=== PATIENT | male | born 1995 | race Caucasian/White ===

== ENCOUNTER 2017-07-19 23:33 | Observation (INO) | payer OTHER ==
[~2017-07-19] VITALS: Ht 177.8 cm; Wt 80.0 kg
[~2017-07-19 23:33] MED LIST: Z.0.NO CURRENT MEDS
[2017-07-19] MEDS ORDERED: SODIUM CHLOR 0.9% 1000 ML INJ 1,000 ML IV ONE (23:48)
--- NOTE | 2017-07-19 23:56 | PD ---
HPI Chief Complaint: overdose Time Seen by Provider: 23:48 Travel History International Travel<30 days: No Contact w/Intl Traveler<30days: No History of Present Illness HPI The patient is a 21 year old male who presents to the [facility] emergency department with a history of reportedly intentionally overdosing on 2 different medications. The first medication was 10 pills of along to his mother, and 5 pills of along to a friend. He is unsure of the names of the medications. He reports that he has attempted suicide in the past by overdose approximately 3 years ago. He denies being on any antidepressants of her psychiatric medications recently. The patient reports that he has been depressed recently. He reports that he was intentionally trying to harm himself. The patient was placed under a Christensen act prior to arrival. The patient's mother was able to be contacted and reports that the 2 medications that she takes are Synthroid and Strattera. The patient additionally reports that he has had 2 alcoholic beverages today. The patient has been taking the pills intermittently since 1 PM today. He last ingested the last pill approximately 2 hours prior to arrival. A friend called ambulance services to assist the patient. On review of systems, the patient denies having any known recent fevers, cough, congestion , neck pain, chest pain, shortness of breath, abdominal pain, vomiting, diarrhea , urinary symptoms, or neurologic symptoms. [facility] Past Medical History Narrative Medical The patient's past medical history is significant for attention deficit disorder , history of prior suicide attempt. Past Surgical History Narrative Surgical The patient's past surgical history is significant for breast surgery bilaterally related to gynecomastia. Social History Alcohol Use: Yes Tobacco Use: Yes Substance Use: No Allergies-Medications (Allergen,Severity, Reaction): Coded Allergies: No Known Allergies (Unverified Allergy, Unknown, 07/20/17) Reported Meds & Prescriptions Reported Meds & Active Scripts Active Reported No Current Meds (Miscellaneous Medication) Misc Review of Systems Except as stated in HPI: all other systems reviewed are Neg General / Constitutional: No: Fever Eyes: No: Visual changes HENT: No: Headaches Cardiovascular: No: Chest Pain or Discomfort Respiratory: No: Shortness of Breath Gastrointestinal: No: Abdominal Pain Genitourinary: No: Dysuria Musculoskeletal: No: Pain Skin: No Rash Neurologic: No: Weakness Psychiatric: Positive: Depression, Suicidal Ideations, Mood Disorder, No: Homicidal Ideation Endocrine: No: Polydipsia Hematologic/Lymphatic: No: Easy Bruising Physical Exam Narrative General: The patient is a well-developed well-nourished male in no acute distress. Head and Neck exam: Head is normocephalic atraumatic. Eyes: EOMI, pupils are equal round and reactive to light. Nose: Midline septum with pink mucous membranes Mouth: Dentition unremarkable. Moist mucus membranes. Posterior oropharynx is not erythematous. No tonsillar hypertrophy. Uvula midline. Airway patent. Neck: No palpable lymphadenopathy. No nuchal rigidity. No thyromegaly. Cardiovascular: Regular rate and rhythm without murmurs, gallops, or rubs. Lungs: Clear to auscultation bilaterally. No wheezes, rhonchi, or rales. Abdomen: Soft, without tenderness to palpation in all 4 quadrants of the abdomen. No guarding, rebound, or rigidity. Normal bowel sounds are audible. No tenderness on palpation of McBurney's point. Extremities: No clubbing, cyanosis, or edema. 2+ pulses in all 4 extremities. No calf tenderness on palpation. Neurologic Exam: Grossly nonfocal. Skin Exam: No rash noted. Intact skin that is warm and dry. Data Data Last Documented VS Vital Signs Date Time Temp Pulse Resp B/P (MAP) Pulse Ox O2 Delivery O2 Flow Rate FiO2 07/20/17 01:00 72 14 166/90 (115) 100 Room Air 07/20/17 00:00 98.9 Orders Orders Electrocardiogram (07/19/17 23:48) Complete Blood Count With Diff (07/19/17 23:48) Comprehensive Metabolic Panel (07/19/17 23:48) Prothrombin Time / Inr (Pt) (07/19/17 23:48) Act Partial Throm Time (Ptt) (07/19/17 23:48) Osmolality,Serum (07/19/17 23:48) Osmolality, Urine (07/19/17 23:48) Urinalysis - C+S If Indicated (07/19/17 23:48) Chest, Single Ap (07/19/17 23:48) Iv Access Insert/Monitor (07/19/17 23:48) Ecg Monitoring (07/19/17 23:48) Oximetry (07/19/17 23:48) Psych Screen (07/19/17 23:48) Sodium Chloride 0.9% Flush (Ns Flush) (07/20/17 00:00) Sodium Chlor 0.9% 1000 Ml Inj (Ns 1000 M (07/19/17 23:48) Call Poison Control (07/19/17 23:48) Drug Screen, Random Urine (07/19/17 23:48) Alcohol (Ethanol) (07/19/17 23:48) Salicylates (Aspirin) (07/19/17 23:48) Tylenol (Acetaminophen) (07/19/17 23:48) Admit Order (Ed Use Only) (07/20/17 02:28) Labs Laboratory Tests Test 07/19/17 23:55 White Blood Count 7.9 TH/MM3 Red Blood Count 5.31 MIL/MM3 Hemoglobin 16.6 GM/DL Hematocrit 48.1 % Mean Corpuscular Volume 90.6 FL Mean Corpuscular Hemoglobin 31.2 PG Mean Corpuscular Hemoglobin Concent 34.4 % Red Cell Distribution Width 13.1 % Platelet Count 157 TH/MM3 Mean Platelet Volume 10.4 FL Neutrophils (%) (Auto) 75.4 % Lymphocytes (%) (Auto) 18.1 % Monocytes (%) (Auto) 5.1 % Eosinophils (%) (Auto) 0.8 % Basophils (%) (Auto) 0.6 % Neutrophils # (Auto) 6.0 TH/MM3 Lymphocytes # (Auto) 1.4 TH/MM3 Monocytes # (Auto) 0.4 TH/MM3 Eosinophils # (Auto) 0.1 TH/MM3 Basophils # (Auto) 0.0 TH/MM3 CBC Comment DIFF FINAL Differential Comment Prothrombin Time 10.5 SEC Prothromb Time International Ratio 1.0 RATIO Activated Partial Thromboplast Time 26.4 SEC Blood Urea Nitrogen 15 MG/DL Creatinine 1.08 MG/DL Random Glucose 115 MG/DL Total Protein 7.8 GM/DL Albumin 4.4 GM/DL Calcium Level 8.9 MG/DL Alkaline Phosphatase 82 U/L Aspartate Amino Transf (AST/SGOT) 14 U/L Alanine Aminotransferase (ALT/SGPT) 24 U/L Total Bilirubin 0.3 MG/DL Sodium Level 141 MEQ/L Potassium Level 3.7 MEQ/L Chloride Level 104 MEQ/L Carbon Dioxide Level 28.5 MEQ/L Anion Gap 9 MEQ/L Estimat Glomerular Filtration Rate 86 ML/MIN Serum Osmolality 294 MOSM/KG Salicylates Level LESS THAN 1.7 MG/DL Acetaminophen Level LESS THAN 2.0 MCG/ML Ethyl Alcohol Level LESS THAN 3 MG/DL MDM Medical Decision Making Medical Screen Exam Complete: Yes Emergency Medical Condition: Yes Medical Record Reviewed: Yes Interpretation(s) Last Impressions Chest X-Ray 07/19/17 2348 Signed Impressions: Service Date/Time: Thursday, July 20, 2017 00:06 - CONCLUSION: No evidence of acute cardiopulmonary disease. Demetrio Lewis MD Differential Diagnosis Tricyclic acid antidepressant overdose, SSRI overdose, versus other substance overdose Narrative Course During the course of the patients emergency department visit, the patients history, examination, and differential diagnosis were reviewed with the patient. The patient was placed on a habilitative interventionist with oximetry and frequent blood pressure monitoring. The patient had IV access obtained and blood work sent for analysis. The patient had an ECG done on arrival. The patient's EKG reveals a sinus rhythm with a heart rate of 83, QRS duration is 114 ms with an incomplete right bundle branch block, QTC 429 ms. T waves are inverted in V1, V2. No acute ST segment elevation. Poison control contacted regarding this patient's case. The patient's electronic medical record was reviewed. The patient last had an ECG done at this facility on June 30, 2013. The patient' s QRS duration at that time with 100 ms. The patient will be continued on telemetry. Poison control was contacted regarding the patient's case. They recommended observation for 23 hours on telemetry with seizure precautions due to the unknown antidepressant ingestion. The patient was initially provided normal saline 1 L IV fluid bolus. The patients laboratory studies were reviewed and remarkable for a white count of 7.9, hemoglobin 16.6, platelets 157 with 75.4 neutrophils, CMP is remarkable for glucose of 1:15, AST 14, serum osmolality 294, PT PTT within normal limits, salicylate less than 1.7, acetaminophen less than 2, alcohol level less than 3. Radiology studies were reviewed and remarkable for a chest x-ray that shows no evidence of acute cardiopulmonary disease. The patient's ECG was repeated 3. The second ECG continued to show a QRS duration of 114 ms, the third ECG showed improvement of the QRS duration down to 110 ms. The patients results were discussed with the patient, including the plan of care. I explained that further testing and/ or monitoring is indicated based on the patients history, examination, and/ or laboratory findings. Therefore, I recommended admission for additional evaluation. The patient expressed understanding and was agreeable with this plan. The patient was admitted to the hospital in guarded condition and sent to a bed under the care of the [facility] service. Physician Communication Physician Communication The patient's case including history, pertinent physical examination findings, and laboratory studies were discussed with Dr. Thompson. It was agreed that the patient would be admitted to the [facility] service. Diagnosis Primary Impression: Suicide attempt by drug ingestion Qualified Codes: T50.902A - Poisoning by unspecified drugs, medicaments and biological substances, intentional self-harm, initial encounter Admitting Information Admitting Physician Requests: Observation Regine Sheffield MD Jul 19, 2017 23:56
[2017-07-20] VITALS (14 sets, daily range): BP systolic 122–166; BP diastolic 67–90; PULSE 53–84; RESP 14–20; TEMP 98–98.9; O2SAT 95–100
[2017-07-20] MEDS ORDERED: SODIUM CHLORIDE 0.9% FLUSH 10 ML FLUSH IVF PRN
[2017-07-20 00:08] LABS: BASOPHIL % 0.6 % (0.0-2.0); EOSINOPHIL # 0.1 TH/MM3 (0-0.4); EOSINOPHIL % 0.8 % (0.0-4.0); HEMATOCRIT 48.1 % (39.0-51.0); HEMO FLAGS DIFF FINAL; LYMPH % 18.1 % (9.0-44.0); LYMPHOCYTE # 1.4 TH/MM3 (1.0-4.8); MEAN CELL VOLUME 90.6 FL (80.0-100.0); MEAN CORPUSCULAR HEMOGLOBIN 31.2 PG (27.0-34.0); MEAN CORPUSCULAR HGB CONC 34.4 % (32.0-36.0); MONO % 5.1 % (0.0-8.0); NEUT % 75.4 % (16.0-70.0); PLATELET COUNT 157 TH/MM3 (150-450); RED BLOOD COUNT 5.31 MIL/MM3 (4.50-5.90); RED CELL DISTRIBUTION WIDTH 13.1 % (11.6-17.2); WHITE BLOOD COUNT 7.9 TH/MM3 (4.0-11.0)
[2017-07-20 00:20] LABS: APTT (PATIENT) 26.4 SEC (24.3-30.1); PROTHROMBIN TIME - PATIENT 10.5 SEC (9.8-11.6)
--- NOTE | 2017-07-20 00:22 | RADRPT ---
EXAM DATE/TIME: 07/20/2017 00:06 [facility] COMPARISON: No previous studies available for comparison. INDICATIONS : Cough MEDICAL HISTORY : None. SURGICAL HISTORY : None. ENCOUNTER: Initial ACUITY: 1 day PAIN SCORE: 7/10 LOCATION: Bilateral chest FINDINGS: A single view of the chest demonstrates the lungs to be symmetrically aerated without evidence of mas s, infiltrate or effusion. The cardiomediastinal contours are unremarkable. Osseous structures are intact. CONCLUSION: No evidence of acute cardiopulmonary disease. Demetrio Lewis MD on July 20, 2017 at 0:21 Board Certified Radiologist. This report was verified electronically.
[2017-07-20 00:34] LABS: ALT (GPT) 24 U/L (12-78); ANION GAP 9 MEQ/L (5-15); AST (GOT) 14 U/L (15-37); BICARBONATE 28.5 MEQ/L (21.0-32.0); BLOOD UREA NITROGEN 15 MG/DL (7-18); CHLORIDE 104 MEQ/L (98-107); GLOMERULAR FILTRATION RATE 86 ML/MIN (>89); POTASSIUM 3.7 MEQ/L (3.5-5.1); SODIUM (NA) 141 MEQ/L (136-145)
[2017-07-20 00:37] LABS: ALKALINE PHOSPHATASE 82 U/L (45-117); TOTAL BILIRUBIN ADULT 0.3 MG/DL (0.2-1.0)
[2017-07-20 00:41] LABS: ALCOHOL LESS THAN 3 MG/DL (0-5)
[2017-07-20 00:42] LABS: ACETAMINOPHEN LESS THAN 2.0 MCG/ML (10.0-30.0)
[2017-07-20] MEDS ORDERED: LACTULOSE SYRUP 20 GM/30 ML CUP PO PRN (02:30)
[2017-07-20] MEDS ORDERED: SODIUM CHLORIDE 0.9% FLUSH 10 ML FLUSH IV FLUSH PRN (02:30)
[2017-07-20] MEDS ORDERED: ACETAMINOPHEN 325 MG TAB PO PRN (02:30)
[2017-07-20] MEDS ORDERED: MAGNESIUM HYDROXIDE SUSP 30 ML CUP PO PRN (02:30)
[2017-07-20] MEDS ORDERED: SENNOSIDES 8.6 MG TAB PO PRN (02:30)
[2017-07-20] MEDS ORDERED: ONDANSETRON HCL 4 MG/2 ML VIAL IVP PRN (02:30)
[2017-07-20] MEDS ORDERED: BISACODYL 10 MG SUPP RECTAL PRN (02:30)
[2017-07-20] MEDS: SODIUM CHLOR 0.9% 1000 ML INJ 1,000 ML IV SCH ×3 (02:46→21:46)
--- NOTE | 2017-07-20 02:55 | HHI.HP ---
[facility] No Primary Care Physician Admission Diagnosis Intentional medication overdose, BA Diagnoses: (1) Suicide attempt by drug ingestion Diagnosis: Principal (2) Abnormal EKG Diagnosis: Principal (3) Dehydration Diagnosis: Principal Travel History International Travel<30 Days: No Contact w/Intl Traveler <30 Da: No Traveled to Known Affected Are: No History of Present Illness This is a 21-year-old male with PMH of ADD and previous h/o Suicide Attempt who was brought to the ER under Christensen Act for Intentional Overdose. Per report, pt had taken multiple tablets of both his mom's and his friend's pills-thought to be antidepressants and Strattera. Later reported he had been taking pills intermittently throughout the day-a pill or two at a time, since 1pm. Friend called EMS. On arrival, BP 166/90, HR 79, O2 sat 100% on RA, Afebrile. CBC unremarkable. Chemistry unremarkable except for GFR 86. INR 1.0. Alcohol negative. Tylenol/Salicylates negative. EKG with prolonged QRS of 114, incomplete RBBB and T-wave inversions. Poison Control contacted, recommended repeat EKG and admission for observation. Review of Systems Except as stated in HPI: all other systems reviewed are Neg ROS: 14 point review of systems otherwise negative. Past Family Social History Past Medical History PMH: ADD and previous h/o Suicide Attempt Past Surgical History PAST SURGICAL HISTORY: Breast Surgery for Gynecomastia Allergies: Coded Allergies: No Known Allergies (Unverified Allergy, Unknown, 07/20/17) Family History PAST FAMILY HISTORY: Reviewed. No h/o DM or CAD Social History PAST SOCIAL HISTORY: Occasional alcohol. Positive for tobacco. Negative for drugs. Physical Exam Vital Signs Vital Signs Date Time Temp Pulse Resp B/P (MAP) Pulse Ox O2 Delivery O2 Flow Rate FiO2 07/20/17 00:00 19 100 Room Air 07/20/17 00:00 98.9 79 19 166/90 (115) 100 Physical Exam PE: GENERAL: Young male in no acute distress, sleeping comfortably. HEENT: PERRLA, EOMI. No scleral icterus or conjunctival pallor. No lid lag or facial droop. CARDIOVASCULAR: Regular rate and rhythm. No obvious murmurs to auscultation. No chest tenderness to palpation. RESPIRATORY: No obvious rhonchi or wheezing. Clear to auscultation. Breath sounds equal bilaterally. GASTROINTESTINAL: Abdomen soft, non-tender, nondistended. BS normal. MUSCULOSKELETAL: Extremities without clubbing, cyanosis, or edema. No obvious deformities. NEUROLOGICAL: Awake, alert and oriented x4. No focal neurologic deficits. Moving both upper and lower extremities spontaneously. Laboratory Laboratory Tests Test 07/19/17 23:55 White Blood Count 7.9 Red Blood Count 5.31 Hemoglobin 16.6 Hematocrit 48.1 Mean Corpuscular Volume 90.6 Mean Corpuscular Hemoglobin 31.2 Mean Corpuscular Hemoglobin Concent 34.4 Red Cell Distribution Width 13.1 Platelet Count 157 Mean Platelet Volume 10.4 Neutrophils (%) (Auto) 75.4 Lymphocytes (%) (Auto) 18.1 Monocytes (%) (Auto) 5.1 Eosinophils (%) (Auto) 0.8 Basophils (%) (Auto) 0.6 Neutrophils # (Auto) 6.0 Lymphocytes # (Auto) 1.4 Monocytes # (Auto) 0.4 Eosinophils # (Auto) 0.1 Basophils # (Auto) 0.0 CBC Comment DIFF FINAL Differential Comment Prothrombin Time 10.5 Prothromb Time International Ratio 1.0 Activated Partial Thromboplast Time 26.4 Blood Urea Nitrogen 15 Creatinine 1.08 Random Glucose 115 Total Protein 7.8 Albumin 4.4 Calcium Level 8.9 Alkaline Phosphatase 82 Aspartate Amino Transf (AST/SGOT) 14 Alanine Aminotransferase (ALT/SGPT) 24 Total Bilirubin 0.3 Sodium Level 141 Potassium Level 3.7 Chloride Level 104 Carbon Dioxide Level 28.5 Anion Gap 9 Estimat Glomerular Filtration Rate 86 Serum Osmolality 294 Salicylates Level LESS THAN 1.7 Acetaminophen Level LESS THAN 2.0 Ethyl Alcohol Level LESS THAN 3 Result Diagram: 07/19/17235407/19/172354 Caprini VTE Risk Assessment Caprini VTE Risk Assessment: No/Low Risk (score <= 1) Caprini Risk Assessment Model Point Value = 1 Point Value = 2 Point Value = 3 Point Value = 5 Age 41-60 Minor surgery BMI > 25 kg/m2 Swollen legs Varicose veins or History of unexplained or recurrent spontaneous Oral contraceptives or hormone replacement Sepsis (< 1 month) Serious lung disease, including pneumonia (< 1 month) Abnormal pulmonary function Acute myocardial infarction Congestive heart failure (< 1 month) History of inflammatory bowel disease Medical patient at bed rest Age 61-74 Arthroscopic surgery Major open surgery (> 45 min) Laparoscopic surgery (> 45 min) Malignancy Confined to bed (> 72 hours) Immobilizing plaster cast Central venous access Age >= 75 History of VTE Family history of VTE Factor V Leiden Prothrombin [id number] Lupus anticoagulant Anticardiolipin antibodies Elevated serum homocysteine Heparin-induced thrombocytopenia Other congenital or acquired thrombophilia Stroke (< 1 month) Elective arthroplasty Hip, pelvis, or leg fracture Acute spinal cord injury (< 1 month) Prophylaxis Regimen Total Risk Factor Score Risk Level Prophylaxis Regimen 0-1 Low Early ambulation 2 Moderate Order ONE of the following: *Sequential Compression Device (SCD) *Heparin 5000 units SQ BID 3-4 Higher Order ONE of the following medications: *Heparin 5000 units SQ TID *Enoxaparin/Lovenox 40 mg SQ daily (WT < 150 kg, CrCl > 30 mL/min) *Enoxaparin/Lovenox 30 mg SQ daily (WT < 150 kg, CrCl > 10-29 mL/min) *Enoxaparin/Lovenox 30 mg SQ BID (WT < 150 kg, CrCl > 30 mL/min) AND/OR *Sequential Compression Device (SCD) 5 or more Highest Order ONE of the following medications: *Heparin 5000 units SQ TID (Preferred with Epidurals) *Enoxaparin/Lovenox 40 mg SQ daily (WT < 150 kg, CrCl > 30 mL/min) *Enoxaparin/Lovenox 30 mg SQ daily (WT < 150 kg, CrCl > 10-29 mL/min) *Enoxaparin/Lovenox 30 mg SQ BID (WT < 150 kg, CrCl > 30 mL/min) AND *Sequential Compression Device (SCD) Assessment and Plan Problem List: (1) Suicide attempt by drug ingestion ICD Code: T50.902A - Poisoning by unspecified drugs, medicaments and biological substances, intentional self-harm, initialencounter Status: Acute (2) Abnormal EKG ICD Code: R94.31 - Abnormal electrocardiogram [ECG] [EKG] (3) Dehydration ICD Code: E86.0 - Dehydration Assessment and Plan A/P: 1. Suicide Attempt: Intentional Overdose in Suicide Attempt. Reportedly ingested 15 tablets of antidepressants and Strattera throughout the day yesterday. Currently under Christensen Act. Poison Control recommending admission for Observation. Telemetry, Seizure Precautions. Consult Psych. Sitter. 2. Abnormal EKG: Prolonged QRS 114, Incomplete RBBB and T-wave inversions, repeat EKG w/ QRS 110. Will check serial EKG's q4h. Telemetry. 3. Dehydration: GFR 86. IVF for hydration, repeat labs in am. 4. DVT Prophylaxis: SCD/Teds. 5. Social work for d/c planning as needed. 6. Case discussed w/ ER physician at length. Problem Qualifiers (1) Suicide attempt by drug ingestion: Qualified Codes: T50.902A - Poisoning by unspecified drugs, medicaments and biological substances, intentional self-harm, initial encounter Sarah Thompson MD Jul 20, 2017 02:55
[2017-07-20] MEDS: DOCUSATE SODIUM 50 MG/SENNA 8.6 MG TAB PO SCH ×2 (09:01→21:00)
[2017-07-20] MEDS: SODIUM CHLORIDE 0.9% FLUSH 10 ML FLUSH IV FLUSH SCH ×2 (09:02→21:46)
--- NOTE | 2017-07-20 09:35 | PD.PSY.CON ---
Provisional Diagnosis Admission Date Jul 20, 2017 at 02:30 [place] I. Major depressive disorder, single episode, severe, without psychosis, cannabis use disorder [place] II. Deferred [place] III. No significant medical history [place] IV. Noncompliance with psychotropic [place] V. 35 History of Present Illness Service Psychiatry Consult Requested By ER team Reason for Consult Suicidal attempt Primary Care Physician No Primary Care Physician HPI The patient is a 21-year-old man, domiciled with his parents in [place], unemployed, single, with a self-reported psychiatric history of ADHD, 2 previous psychiatric hospitalizations, one suicide attempts, no established outpatient care, no medication at this moment, cannabis use disorder, he has one ER psychiatric visit to [place] in 2012, but documentation is not clear, no significant medical history, who was brought to the ER under Christensen Act for Intentional Overdose. Per report, pt had taken multiple tablets of both his mom 's and his friend's pills-thought to be antidepressants and Strattera. Later reported he had been taking pills intermittently throughout the day-a pill or two at a time, since 1pm. Friend called EMS. On arrival, BP 166/90, HR 79, O2 sat 100% on RA, Afebrile. CBC unremarkable. Chemistry unremarkable except for GFR 86. INR 1.0. Alcohol negative. Tylenol/Salicylates negative. EKG with prolonged QRS of 114, incomplete RBBB and T-wave inversions. Poison Control contacted, recommended repeat EKG and admission for observation. On psychiatric evaluation today patient is calm, superficially cooperative, he seems to be fragile and vulnerable. Patient is objectively depressed, he says that weeks he has been feeling worthless, has lost the purpose in life, feels frustrated, useless," my life is not going anywhere", pessimistic, with some interpersonal conflicts with family and friends, and has been having suicidal thoughts until yesterday when he took pills in order to . Today on evaluation patient still feels life is no worth living. He denies any plan at this moment. He contracted for safety in the ER. Patient cannot identify a precise acute stressor. He also reports insomnia, poor energy and concentration , and poor appetite. The patient denies the use of alcohol and illicit drugs, but reports using marijuana occasionally. Review of Systems Constitutional: DENIES: Diaphoretic episodes, Fatigue, Fever, Weight gain, Weight loss, Chills, Dizziness, Change in appetite, Night Sweats Endocrine: DENIES: Heat/cold intolerance, Polydipsia, Polyuria, Polyphagia Eyes: DENIES: Blurred vision, Diplopia, Eye inflammation, Eye pain, Vision loss , Photosensitivity, Double Vision Ears, nose, mouth, throat: DENIES: Tinnitus, Hearing loss, Vertigo, Nasal discharge, Oral lesions, Throat pain, Hoarseness, Ear Pain, Running Nose, Epistaxis, Sinus Pain, Toothache, Odynophagia Respiratory: DENIES: Apneas, Cough, Snoring, Wheezing, Hemoptysis, Sputum production, Shortness of breath Cardiovascular: DENIES: Chest pain, Palpitations, Syncope, Dyspnea on Exertion , PND, Lower Extremity Edema, Orthopnea, Claudication Genitourinary: DENIES: Sexual dysfunction, Urinary frequency, Urinary incontinence, Urgency, Hematuria, Dysuria, Nocturia, Penile Discharge, Testicular Pain, Testicular Swelling Integumentary: DENIES: Abnormal pigmentation, Nail changes, Pruritus, Rash Hematologic/lymphatic: DENIES: Bruising, Lymphadenopathy Immunologic/allergic: DENIES: Eczema, Urticaria Neurologic: DENIES: Abnormal gait, Headache, Localized weakness, Paresthesias, Seizures, Speech Problems, Tremor, Poor Balance Psychiatric: COMPLAINS OF: Depression, Suicidal Ideation Past Family Social History Coded Allergies: No Known Allergies (Unverified Allergy, Unknown, 07/20/17) Reported Medications Miscellaneous (No Current Meds) [facility] [place] 06/30/13 Current Medications Medications (Trade) Dose Ordered Sig/Johnson Route Start Time Stop Time Status Last Admin (NS Flush) 2 ml UNSCH PRN IVF 07/20/17 00:00 Sodium Chloride 1,000 ml @ 100 mls/hr Q10H IV 07/20/17 03:00 07/20/17 02:46 (NS Flush) 2 ml UNSCH PRN IV FLUSH 07/20/17 02:30 (NS Flush) 2 ml BID IV FLUSH 07/20/17 09:00 07/20/17 09:02 (Zofran Inj) 4 mg Q6H PRN IVP 07/20/17 02:30 (Tylenol) 650 mg Q6H PRN PO 07/20/17 02:30 (Sue-Colace) 1 tab BID PO 07/20/17 09:00 07/20/17 09:01 (Milk Of Magnesia Liq) 30 ml Q12H PRN PO 07/20/17 02:30 (Senokot) 17.2 mg Q12H PRN PO 07/20/17 02:30 (Dulcolax Supp) 10 mg DAILY PRN RECTAL 07/20/17 02:30 (Lactulose Liq) 30 ml DAILY PRN PO 07/20/17 02:30 Family Psych History his mother has depression and ADHD Social History Patient was born and raised in [place], he lives in [place] with his parents , his single, unemployed, highest level of education is high school. Patient's Strengths (min. 2) Family support Physical Exam No tremors, no EPS, no withdrawal, no psychomotor agitation or retardation, no gait disturbance Vital Signs Vital Signs Date Time Temp Pulse Resp B/P (MAP) Pulse Ox O2 Delivery O2 Flow Rate FiO2 07/20/17 07:56 59 07/20/17 07:26 98.1 16 127/77 (94) 97 07/20/17 03:00 Room Air I/O 07/20/17 07/20/17 07/21/17 08:00 16:00 00:00 Intake Total 1000 ml Balance 1000 ml Lab Results Test 07/19/17 23:55 White Blood Count 7.9 TH/MM3 Red Blood Count 5.31 MIL/MM3 Hemoglobin 16.6 GM/DL Hematocrit 48.1 % Mean Corpuscular Volume 90.6 FL Mean Corpuscular Hemoglobin 31.2 PG Mean Corpuscular Hemoglobin Concent 34.4 % Red Cell Distribution Width 13.1 % Platelet Count 157 TH/MM3 Mean Platelet Volume 10.4 FL Neutrophils (%) (Auto) 75.4 % Lymphocytes (%) (Auto) 18.1 % Monocytes (%) (Auto) 5.1 % Eosinophils (%) (Auto) 0.8 % Basophils (%) (Auto) 0.6 % Neutrophils # (Auto) 6.0 TH/MM3 Lymphocytes # (Auto) 1.4 TH/MM3 Monocytes # (Auto) 0.4 TH/MM3 Eosinophils # (Auto) 0.1 TH/MM3 Basophils # (Auto) 0.0 TH/MM3 CBC Comment DIFF FINAL Differential Comment Prothrombin Time 10.5 SEC Prothromb Time International Ratio 1.0 RATIO Activated Partial Thromboplast Time 26.4 SEC Blood Urea Nitrogen 15 MG/DL Creatinine 1.08 MG/DL Random Glucose 115 MG/DL Total Protein 7.8 GM/DL Albumin 4.4 GM/DL Calcium Level 8.9 MG/DL Alkaline Phosphatase 82 U/L Aspartate Amino Transf (AST/SGOT) 14 U/L Alanine Aminotransferase (ALT/SGPT) 24 U/L Total Bilirubin 0.3 MG/DL Sodium Level 141 MEQ/L Potassium Level 3.7 MEQ/L Chloride Level 104 MEQ/L Carbon Dioxide Level 28.5 MEQ/L Anion Gap 9 MEQ/L Estimat Glomerular Filtration Rate 86 ML/MIN Serum Osmolality 294 MOSM/KG Salicylates Level LESS THAN 1.7 MG/DL Acetaminophen Level LESS THAN 2.0 MCG/ML Ethyl Alcohol Level LESS THAN 3 MG/DL Mental Status Examination Appearance: Appropriate Consciousness: Alert Orientation: x4 Motor Activity: Normal gait Speech: Unremarkable Language: Adequate Fund of Knowledge: Adequate Attention and Concentration: Adequate Memory: Unremarkable Mood: Sad, Irritable Affect: Sad, Blunt Thought Process & Associations: Intact Thought Content: Appropriate Hallucination Type: None Delusion Type: None Suicidal Ideation: No Suicidal Plan: No Suicidal Intention: No Homicidal Ideation: No Homicidal Plan: No Homicidal Intention: No Insight: Adequate Judgment: Adequate Assessment & Plan Problem List: (1) Major depressive disorder, single episode ICD Codes: F32.9 - Major depressive disorder, single episode, unspecified Assessment & Plan: On psychiatric evaluation the patient reports several weeks of ongoing symptomatology of depression mostly consistent on sense of frustration, lack of motivation, generalized pessimism, poor sleep, poor appetite, insomnia, loss of pressure in usually pleasurable activities, suicidal thoughts the finally led to a suicide attempt by overdosing with his mother's psychotropics yesterday. Patient cannot identify precise acute stressors. He does have what seems to be protective factors, such as family support, history of successful outpatient treatment. But, at this moment the patient represents an acute danger to himself and needs psychiatric admission for stabilization and safety. Patient will be transferred to psychiatry once medically stable. He could be appropriate for med psych unit. We'll start Wellbutrin 75 mg twice a day for depression. Continue with the sitter in ER floor. Extensive support, motivation and psychoeducation provided. Consult appreciated. Assessment & Plan Estimated LOS: Humberto Sorenson MD Jul 20, 2017 09:35
--- NOTE | 2017-07-20 10:52 | HHI.PR ---
Subjective Remarks Follow up on patient with depression, suicide attempt via OD. Patient seen and examined. Patient reports some lightheadedness. He denies any vision changes or headache. He denies any chest pain, palpitations or dyspnea. He reports some nausea but no vomiting or abdominal pain. He is urinating without any difficulties. Objective Vitals Vital Signs Date Time Temp Pulse Resp B/P (MAP) Pulse Ox O2 Delivery O2 Flow Rate FiO2 07/20/17 07:56 59 07/20/17 07:26 98.1 72 16 127/77 (94) 97 07/20/17 06:20 68 07/20/17 05:40 98.2 71 17 122/67 (85) 98 07/20/17 05:22 07/20/17 03:00 84 16 156/78 (104) 100 Room Air 07/20/17 01:00 72 14 166/90 (115) 100 Room Air 07/20/17 00:00 19 100 Room Air 07/20/17 00:00 98.9 79 19 166/90 (115) 100 I/O 07/19/17 07/19/17 07/19/17 07/20/17 07/20/17 07/20/17 07:00 15:00 23:00 07:00 15:00 23:00 Intake Total 1000 ml Balance 1000 ml Intake IV Total 1000 ml Result Diagram: 07/19/17 2355 07/19/17 235 Imaging Last Impressions Chest X-Ray 07/19/172347 Signed Impressions: Service Date/Time: Thursday, July 20, 2017 00:06 - CONCLUSION: No evidence of acute cardiopulmonary disease. Demetrio Lewis MD Objective Remarks GENERAL: Well-nourished, well-developed young male patient in NAD. Awake and alert. Sitter at the bedside. SKIN: Warm and dry. HEAD: Normocephalic. Atraumatic. EYES: Dilated pupils. No scleral icterus. No injection or drainage. ENT: No nasal bleeding or discharge. Mucous membranes pink and moist. NECK: Trachea midline. CARDIOVASCULAR: Regular rate and rhythm. S1, S2 noted. No murmur appreciated. RESPIRATORY: Nonlabored. Clear to auscultation. Breath sounds equal bilaterally. GASTROINTESTINAL: Abdomen soft, non-tender, nondistended. Normoactive bowel sounds x4. MUSCULOSKELETAL: No obvious deformities. Extremities without clubbing, cyanosis , or edema. NEUROLOGICAL: Awake and alert. Able to move all extremities. Nonfocal. Normal speech. Medications and IVs Current Medications Medications (Trade) Dose Ordered Sig/Johnson Route Start Time Stop Time Status Last Admin (NS Flush) 2 ml UNSCH PRN IVF 07/20/17 00:00 Sodium Chloride 1,000 ml @ 100 mls/hr Q10H IV 07/20/17 03:00 07/20/17 02:46 (NS Flush) 2 ml UNSCH PRN IV FLUSH 07/20/17 02:30 (NS Flush) 2 ml BID IV FLUSH 07/20/17 09:00 07/20/17 09:02 (Zofran Inj) 4 mg Q6H PRN IVP 07/20/17 02:30 (Tylenol) 650 mg Q6H PRN PO 07/20/17 02:30 (Sue-Colace) 1 tab BID PO 07/20/17 09:00 07/20/17 09:01 (Milk Of Magnesia Liq) 30 ml Q12H PRN PO 07/20/17 02:30 (Senokot) 17.2 mg Q12H PRN PO 07/20/17 02:30 (Dulcolax Supp) 10 mg DAILY PRN RECTAL 07/20/17 02:30 (Lactulose Liq) 30 ml DAILY PRN PO 07/20/17 02:30 A/P Problem List: (1) Suicide attempt by drug ingestion ICD Code: T50.902A - Poisoning by unspecified drugs, medicaments and biological substances, intentional self-harm, initialencounter Status: Acute (2) Abnormal EKG ICD Code: R94.31 - Abnormal electrocardiogram [ECG] [EKG] (3) Dehydration ICD Code: E86.0 - Dehydration Assessment and Plan 21 yo male past medical history of ADD, depression with previous suicide attempt admitted after repeat suicide attempt via OD on antidepressants and Strattera. Depression Suicide attempt via intentional OD - under Christensen act - Psych consulted, appreciate assistance. Patient to be transferred to psychiatry once medically stable/appropriate for MedPsych unit. Patient started on the future and 75 mg twice a day for depression. - Continue sitter - UDS ordered Intentional OD antidepressants and Strattera - poison control contacted and recommended serial EKGs - last EKG with prolonged QTc and T wave inversions. Patient denies any cardiac complaints. Continue to monitor. Repeat EKG in 3 hours. - Consult cardiology to evaluate for conduction abnormality, appreciate assistance - continuous cardiac monitoring - obtain serial cardiac enzymes - seizure precautions Dehydration - GFR 86 - Receiving IV fluid hydration - repeat labs in am to monitor response DVT prophylaxis - Bilateral SCD/CARLA hose Discussed with nursing staff, patient and Dr. Auguste Discharge Planning Plan to transfer to [facility]/psych once medically stable, likely later today Problem Qualifiers (1) Suicide attempt by drug ingestion: Qualified Codes: T50.902A - Poisoning by unspecified drugs, medicaments and biological substances, intentional self-harm, initial encounter Daiana Chery Jul 20, 2017 10:52
[2017-07-20 11:53] LABS: CREATINE KINASE 111 U/L (39-308)
[2017-07-20 12:05] LABS: CKMB 0.9 NG/ML (0.5-3.6)
[2017-07-20 15:42] LABS: BLOOD, URINE NEG (NEG); COMMENT (UR) CULT NOT INDICATED; CULTURE IF INDICATED CULT NOT INDICATED; GLUCOSE,URINE NEG (NEG); KETONE, URINE NEG (NEG); NITRITE,URINE NEG (NEG); PH, URINE 7.5 (5.0-8.5); URINE COLOR YELLOW (YELLW/STRAW)
--- NOTE | 2017-07-20 15:53 | PD.CONS ---
HPI Consult Requested By Primary Care Physician No Primary Care Physician History of Present Illness 21-year-old male with PMH of ADD and previous h/o Suicide Attempt who was brought to the ER under Christensen Act for Intentional Overdose. Consulted to cardiology because of conduction abnormalities in the EKG. EKG shows sinus bradycardia and incomplete right bundle branch blocks. No CV complaints. Review of Systems Consitutional: DENIES: Fatigue, Fever, Chills, Weight gain, Weight loss Eyes: DENIES: Amaurosis F[place], Change in vision HEENT: DENIES: Lightheadedness, Change in hearing Respiratory: DENIES: See HPI, Cough, Snoring, Shortness of breath, Wheezing, Sputum production Cardiovascular: DENIES: See HPI, Chest pain, Palpitations, Syncope, Tachycardia Gastrointestinal: DENIES: Nausea, Vomiting, Change in bowel habits, Reflux, Bloody stools, Melena Genitourinary: DENIES: Urinary incontinence, Difficulty voiding Integumentary: DENIES: Rash Neurologic: DENIES: Tingling or numbness, Memory problems, Poor Balance, Stroke symptoms Musculoskeletal: DENIES: Joint pain, Muscle pain, Limited range of motion, Back pain Psychiatric: DENIES: Anxiety, Depression, Sleep disturbances Hematologic: DENIES: Bruising tendencies, Bleeding tendencies Endocrine: DENIES: Weight gain, Weight loss, Thyroid disease Past Family Social History Allergies: Coded Allergies: No Known Allergies (Unverified Allergy, Unknown, 07/20/17) Past Medical History ADD and previous h/o Suicide Attempt Past Surgical History Breast Surgery for Gynecomastia Reported Medications Reported Meds & Active Scripts Active Reported No Current Meds (Miscellaneous Medication) Misc Active Ordered Medications Current Medications Medications (Trade) Dose Ordered Sig/Johnson Route Start Time Stop Time Status Last Admin (NS Flush) 2 ml UNSCH PRN IVF 07/20/17 00:00 Sodium Chloride 1,000 ml @ 100 mls/hr Q10H IV 07/20/17 03:00 07/20/17 02:46 (NS Flush) 2 ml UNSCH PRN IV FLUSH 07/20/17 02:30 (NS Flush) 2 ml BID IV FLUSH 07/20/17 09:00 07/20/17 09:02 (Zofran Inj) 4 mg Q6H PRN IVP 07/20/17 02:30 (Tylenol) 650 mg Q6H PRN PO 07/20/17 02:30 (Sue-Colace) 1 tab BID PO 07/20/17 09:00 07/20/17 09:01 (Milk Of Magnesia Liq) 30 ml Q12H PRN PO 07/20/17 02:30 (Senokot) 17.2 mg Q12H PRN PO 07/20/17 02:30 (Dulcolax Supp) 10 mg DAILY PRN RECTAL 07/20/17 02:30 (Lactulose Liq) 30 ml DAILY PRN PO 07/20/17 02:30 Family History Reviewed. No h/o DM or CAD Social History Occasional alcohol. Positive for tobacco. Negative for drugs. Physical Exam Vital Signs Vital Signs Date Time Temp Pulse Resp B/P (MAP) Pulse Ox O2 Delivery O2 Flow Rate FiO2 07/20/17 13:07 98.2 66 16 130/79 (96) 96 07/20/17 07:56 59 07/20/17 07:26 98.1 72 16 127/77 (94) 97 07/20/17 06:20 68 07/20/17 05:40 98.2 71 17 122/67 (85) 98 07/20/17 05:22 07/20/17 03:00 84 16 156/78 (104) 100 Room Air 07/20/17 01:00 72 14 166/90 (115) 100 Room Air 07/20/17 00:00 19 100 Room Air 07/20/17 00:00 98.9 79 19 166/90 (115) 100 Physical Exam GENERAL: Well-nourished, well-developed patient. SKIN: Warm and dry. HEAD: Normocephalic. EYES: No scleral icterus. No injection or drainage. NECK: Supple, trachea midline. No JVD or lymphadenopathy. CARDIOVASCULAR: Regular rate and rhythm without murmurs, gallops, or rubs. RESPIRATORY: Breath sounds equal bilaterally. No accessory muscle use. GASTROINTESTINAL: Abdomen soft, non-tender, nondistended. EXTREMITIES: No cyanosis, or edema. NEUROLOGICAL: Awake, alert, and oriented x 3. Non-focal. Laboratory Laboratory Tests Test 07/19/17 23:55 07/20/17 10:45 07/20/17 14:30 White Blood Count 7.9 Red Blood Count 5.31 Hemoglobin 16.6 Hematocrit 48.1 Mean Corpuscular Volume 90.6 Mean Corpuscular Hemoglobin 31.2 Mean Corpuscular Hemoglobin Concent 34.4 Red Cell Distribution Width 13.1 Platelet Count 157 Mean Platelet Volume 10.4 Neutrophils (%) (Auto) 75.4 Lymphocytes (%) (Auto) 18.1 Monocytes (%) (Auto) 5.1 Eosinophils (%) (Auto) 0.8 Basophils (%) (Auto) 0.6 Neutrophils # (Auto) 6.0 Lymphocytes # (Auto) 1.4 Monocytes # (Auto) 0.4 Eosinophils # (Auto) 0.1 Basophils # (Auto) 0.0 CBC Comment DIFF FINAL Differential Comment Prothrombin Time 10.5 Prothromb Time International Ratio 1.0 Activated Partial Thromboplast Time 26.4 Blood Urea Nitrogen 15 Creatinine 1.08 Random Glucose 115 Total Protein 7.8 Albumin 4.4 Calcium Level 8.9 Alkaline Phosphatase 82 Aspartate Amino Transf (AST/SGOT) 14 Alanine Aminotransferase (ALT/SGPT) 24 Total Bilirubin 0.3 Sodium Level 141 Potassium Level 3.7 Chloride Level 104 Carbon Dioxide Level 28.5 Anion Gap 9 Estimat Glomerular Filtration Rate 86 Serum Osmolality 294 Salicylates Level LESS THAN 1.7 Acetaminophen Level LESS THAN 2.0 Ethyl Alcohol Level LESS THAN 3 Total Creatine Kinase 111 Creatine Kinase MB 0.9 Troponin I LESS THAN 0.02 Thyroid Stimulating Hormone 3rd Gen 0.518 Urine Color YELLOW Urine Turbidity HAZY Urine pH 7.5 Urine Specific [place] 1.013 Urine Protein NEG Urine Glucose (UA) NEG Urine Ketones NEG Urine Occult Blood NEG Urine Nitrite NEG Urine Bilirubin NEG Urine Urobilinogen LESS THAN 2.0 Urine Leukocyte Esterase NEG Urine Amorphous Sediment RARE Microscopic Urinalysis Comment CULT NOT INDICATED Urine Opiates Screen NEG Urine Barbiturates Screen NEG Urine Amphetamines Screen NEG Urine Benzodiazepines Screen NEG Urine Cocaine Screen NEG Urine Cannabinoids Screen NEG Result Diagram: 07/19/17 2355 07/19/17 235 Imaging Last Impressions Chest X-Ray 07/19/172347 Signed Impressions: Service Date/Time: Thursday, July 20, 2017 00:06 - CONCLUSION: No evidence of acute cardiopulmonary disease. Demetrio Lewis MD Assessment and Plan Problem List: (1) Abnormal EKG ICD Codes: R94.31 - Abnormal electrocardiogram [ECG] [EKG] Plan: Unremarkable EKG for age. No conduction abnormalities. Thank you for the opportunity to take part in the care of this patient Sign off (2) Suicide attempt by drug ingestion ICD Codes: T50.902A - Poisoning by unspecified drugs, medicaments and biological substances, intentional self-harm, initialencounter Status: Acute (3) Dehydration ICD Codes: E86.0 - Dehydration (4) Major depressive disorder, single episode ICD Codes: F32.9 - Major depressive disorder, single episode, unspecified Problem Qualifiers (1) Suicide attempt by drug ingestion: Qualified Codes: T50.902A - Poisoning by unspecified drugs, medicaments and biological substances, intentional self-harm, initial encounter Jb Cotto MD Jul 20, 2017 15:53
--- NOTE | 2017-07-20 16:16 | EKG ---
Date Performed: 07/20/2017 Time Performed: 02:24:19 PTAGE: 21 years EKG: Sinus rhythm ST ELEVATION, PROBABLY EARLY REPOLARIZATION Compared to prior tracing no significant change BORDERLI NE ECG PREVIOUS TRACING : 07/20/17 @ 0131 DOCTOR: Farhan Venegas Interpretating Date/Time 07/20/2017 16:14:29
--- NOTE | 2017-07-20 16:16 | EKG ---
Date Performed: 07/20/2017 Time Performed: 01:31:48 PTAGE: 21 years EKG: Sinus rhythm MODERATE INTRAVENTRICULAR CONDUCTION DELAY ST ELEVATION, PROBABLY EARLY REPOLARIZATION Compared to p rior tracing no significant change BORDERLINE ECG PREVIOUS TRACING : 07/19/17 @ 2346 DOCTOR: Farhan Venegas Interpretating Date/Time 07/20/2017 16:14:00
--- NOTE | 2017-07-20 16:16 | EKG ---
Date Performed: 07/19/2017 Time Performed: 23:46:16 PTAGE: 21 years EKG: Sinus rhythm INCOMPLETE RIGHT BUNDLE BRANCH BLOCK Compared to prior tracing no significant change BORDERLINE ECG PREVIOUS TRACING : 06/30/2013 11.48 DOCTOR: Farhan Venegas Interpretating Date/Time 07/20/2017 16:13:38
--- NOTE | 2017-07-20 16:17 | EKG ---
Date Performed: 07/20/2017 Time Performed: 06:05:33 PTAGE: 21 years EKG: Sinus rhythm WITH SINUS ARRHYTHMIA MODERATE INTRAVENTRICULAR CONDUCTION DELAY Compared to prior tracing no signif icant change BORDERLINE ECG PREVIOUS TRACING : 07/20/17 @ 0224 DOCTOR: Farhan Venegas Interpretating Date/Time 07/20/2017 16:15:02
[2017-07-20 18:33] LABS: CREATINE KINASE 103 U/L (39-308)
[2017-07-20 18:45] LABS: CKMB 0.6 NG/ML (0.5-3.6)
[2017-07-21] VITALS: PULSE 60
[2017-07-21 02:19] LABS: AUTOMATED NEUTROPHIL # 5.8 TH/MM3 (1.8-7.7); BASOPHIL # 0.1 TH/MM3 (0-0.2); BASOPHIL % 0.5 % (0.0-2.0); EOSINOPHIL # 0.2 TH/MM3 (0-0.4); HEMATOCRIT 45.1 % (39.0-51.0); HEMO FLAGS DIFF FINAL; LYMPH % 28.2 % (9.0-44.0); LYMPHOCYTE # 2.6 TH/MM3 (1.0-4.8); MEAN CELL VOLUME 91.4 FL (80.0-100.0); MEAN CORPUSCULAR HEMOGLOBIN 30.5 PG (27.0-34.0); MEAN CORPUSCULAR HGB CONC 33.4 % (32.0-36.0); NEUT % 62.3 % (16.0-70.0); PLATELET COUNT 151 TH/MM3 (150-450); RED BLOOD COUNT 4.94 MIL/MM3 (4.50-5.90); RED CELL DISTRIBUTION WIDTH 13.3 % (11.6-17.2); WHITE BLOOD COUNT 9.3 TH/MM3 (4.0-11.0)
[2017-07-21 02:40] LABS: ALT (GPT) 19 U/L (12-78); ANION GAP 8 MEQ/L (5-15); AST (GOT) 11 U/L (15-37); BICARBONATE 29.5 MEQ/L (21.0-32.0); BLOOD UREA NITROGEN 16 MG/DL (7-18); CHLORIDE 104 MEQ/L (98-107); GLOMERULAR FILTRATION RATE 80 ML/MIN (>89); POTASSIUM 4.2 MEQ/L (3.5-5.1); SODIUM (NA) 141 MEQ/L (136-145)
[2017-07-21 02:44] LABS: ALKALINE PHOSPHATASE 68 U/L (45-117); TOTAL BILIRUBIN ADULT 0.5 MG/DL (0.2-1.0)
[2017-07-21 02:45] LABS: CREATINE KINASE 83 U/L (39-308)
[2017-07-21 03:28] VITALS: BP 134/73; PULSE 54; RESP 17; TEMP 97.9; O2SAT 96
[2017-07-21 03:50] VITALS: PULSE 53
[2017-07-21 07:41] VITALS: BP 139/79; PULSE 53; RESP 20; TEMP 98; O2SAT 97
[2017-07-21] MEDS: SODIUM CHLORIDE 0.9% FLUSH 10 ML FLUSH IV FLUSH SCH (08:04)
[2017-07-21] MEDS: SODIUM CHLOR 0.9% 1000 ML INJ 1,000 ML IV SCH (08:04)
[2017-07-21] MEDS: DOCUSATE SODIUM 50 MG/SENNA 8.6 MG TAB PO SCH (08:04)
[2017-07-21] MEDS ORDERED: BUPR150CR PO (09:48)
--- NOTE | 2017-07-21 09:49 | HHI.DCPOC ---
Discharge Care Plan Diagnosis: (1) Major depressive disorder, single episode (2) Suicide attempt by drug ingestion (3) Dehydration Goals to Promote Your Health * To prevent worsening of your condition and complications * To maintain your health at the optimal level Directions to Meet Your Goals Take your medications as prescribed Follow your dietary instruction Follow activity as directed Keep your appointments as scheduled Take your immunizations and boosters as scheduled If your symptoms worsen call your PCP, if no PCP go to Urgent Care Center or Emergency Room Smoking is Dangerous to Your Health. Avoid second hand smoke Call the 24-hour hour crisis hotline for domestic abuse at Sera Gil PA-C Jul 21, 2017 9:49 am
[2017-07-21 11:31] VITALS: BP 127/68; PULSE 64; RESP 20; TEMP 98.3; O2SAT 97
--- NOTE | 2017-07-21 11:46 | HHI.PYPN ---
Subjective Remarks The patient was seen today for psychiatric reevaluation, chart was reviewed, case discussed with Mrs. Gil and nurse in charge. On psychiatric evaluation patient continues to be depressed, poor motivation, patient reports having persistent suicidal thoughts, no immediate plan. He was able to contract for safety in the hospital. He says that he is looking forward to start medication and some kind of psychotherapy to help him his depression. Patient is oriented 3, he doesn't have any attention deficit, no fluctuation of consciousness, he denies visual and auditory hallucinations. Review of Systems Psychiatric: COMPLAINS OF: Depression, Suicidal Ideation Except as stated in HPI: all other systems reviewed are Neg Mental Status Examination Appearance: Appropriate Consciousness: Alert Orientation: x4 Motor Activity: Normal gait Speech: Unremarkable Language: Adequate Fund of Knowledge: Adequate Attention and Concentration: Adequate Memory: Unremarkable Mood: Sad, Irritable Affect: Sad, Blunt Thought Process & Associations: Intact Thought Content: Appropriate Hallucination Type: None Delusion Type: None Suicidal Ideation: No Suicidal Plan: No Suicidal Intention: No Homicidal Ideation: No Homicidal Plan: No Homicidal Intention: No Insight: Adequate Judgment: Adequate Results Labs Test 07/20/17 14:30 07/20/17 17:13 07/21/17 02:03 Urine Color YELLOW Urine Turbidity HAZY Urine pH 7.5 Urine Specific [place] 1.013 Urine Protein NEG mg/dL Urine Glucose (UA) NEG mg/dL Urine Ketones NEG mg/dL Urine Occult Blood NEG Urine Nitrite NEG Urine Bilirubin NEG Urine Urobilinogen LESS THAN 2.0 MG/DL Urine Leukocyte Esterase NEG Urine Amorphous Sediment RARE Microscopic Urinalysis Comment CULT NOT INDICATED Urine Osmolality 520 MOSM/KG Urine Opiates Screen NEG Urine Barbiturates Screen NEG Urine Amphetamines Screen NEG Urine Benzodiazepines Screen NEG Urine Cocaine Screen NEG Urine Cannabinoids Screen NEG Total Creatine Kinase 103 U/L 83 U/L Creatine Kinase MB 0.6 NG/ML Troponin I LESS THAN 0.02 NG/ML LESS THAN 0.02 NG/ML White Blood Count 9.3 TH/MM3 Red Blood Count 4.94 MIL/MM3 Hemoglobin 15.1 GM/DL Hematocrit 45.1 % Mean Corpuscular Volume 91.4 FL Mean Corpuscular Hemoglobin 30.5 PG Mean Corpuscular Hemoglobin Concent 33.4 % Red Cell Distribution Width 13.3 % Platelet Count 151 TH/MM3 Mean Platelet Volume 10.5 FL Neutrophils (%) (Auto) 62.3 % Lymphocytes (%) (Auto) 28.2 % Monocytes (%) (Auto) 7.0 % Eosinophils (%) (Auto) 2.0 % Basophils (%) (Auto) 0.5 % Neutrophils # (Auto) 5.8 TH/MM3 Lymphocytes # (Auto) 2.6 TH/MM3 Monocytes # (Auto) 0.6 TH/MM3 Eosinophils # (Auto) 0.2 TH/MM3 Basophils # (Auto) 0.1 TH/MM3 CBC Comment DIFF FINAL Differential Comment Blood Urea Nitrogen 16 MG/DL Creatinine 1.15 MG/DL Random Glucose 88 MG/DL Total Protein 6.9 GM/DL Albumin 3.9 GM/DL Calcium Level 8.8 MG/DL Alkaline Phosphatase 68 U/L Aspartate Amino Transf (AST/SGOT) 11 U/L Alanine Aminotransferase (ALT/SGPT) 19 U/L Total Bilirubin 0.5 MG/DL Sodium Level 141 MEQ/L Potassium Level 4.2 MEQ/L Chloride Level 104 MEQ/L Carbon Dioxide Level 29.5 MEQ/L Anion Gap 8 MEQ/L Estimat Glomerular Filtration Rate 80 ML/MIN Vitals/IOs Vital Signs Date Time Temp Pulse Resp B/P (MAP) Pulse Ox O2 Delivery O2 Flow Rate FiO2 07/21/17 11:31 98.3 64 20 127/68 (87) 97 07/20/17 03:00 Room Air Intake and Output 07/21/17 07/21/17 07/22/17 08:00 16:00 00:00 Intake Total 240 ml 1000 ml Balance 240 ml 1000 ml Assessment & Plan Problem List: (1) Major depressive disorder, single episode ICD Codes: F32.9 - Major depressive disorder, single episode, unspecified Assessment & Plan: Patient continues to be depressed. Suicidal ideation, nonspecific plan. We'll start Wellbutrin 75 mg twice a day for depression. Brief Supportive psychotherapy provided. Transfer to psychiatry. Assessment & Plan Estimated LOS: days Justification for Cont. Inpt. Patient needs psychiatric hospitalization for stabilization and safety. Humberto Escoto MD Jul 21, 2017 11:46
[2017-07-21] MEDS ORDERED: buPROPion HCL 75 MG TAB PO SCH (12:30)
--- NOTE | 2017-07-21 14:28 | HHI.PR ---
Subjective Remarks no acute complain Cleared by cardiology for transfer to [facility] Objective Vitals Vital Signs Date Time Temp Pulse Resp B/P (MAP) Pulse Ox O2 Delivery O2 Flow Rate FiO2 07/21/17 11:31 98.3 64 20 127/68 (87) 97 07/21/17 07:41 98.0 53 20 139/79 (99) 97 07/21/17 03:50 53 07/21/17 03:28 97.9 54 17 134/73 (93) 96 07/21/17 00:00 60 07/20/17 23:52 98.0 74 17 125/89 (101) 95 07/20/17 21:05 98.2 56 17 128/75 (92) 96 07/20/17 20:05 60 07/20/17 18:51 98.1 77 20 135/72 (93) 96 07/20/17 16:00 53 I/O 07/20/17 07/20/17 07/20/17 07/21/17 07/21/17 07/21/17 07:00 15:00 23:00 07:00 15:00 23:00 Intake Total 1000 ml 240 ml 1000 ml Balance 1000 ml 240 ml 1000 ml Intake Oral 240 ml IV Total 1000 ml 1000 ml # Voids 2 Result Diagram: 07/21/17 02007/21/17 020 Objective Remarks GENERAL: This is a well-nourished, well-developed patient, in no apparent distress. SKIN: No rashes, warm and dry HEAD: Atraumatic. Normocephalic. EYES: Pupils equal round and reactive. Extraocular motions intact. No scleral icterus. ENT: Nose without bleeding, or drainage, Airway patent. NECK: Trachea midline. Supple CARDIOVASCULAR: Regular rate and rhythm without murmurs, gallops, or rubs. RESPIRATORY: Fair air entry bilaterally. No wheezes, rales, or rhonchi. GASTROINTESTINAL: Abdomen soft, non-tender, nondistended. Positive bowel sounds MUSCULOSKELETAL: Extremities without clubbing, cyanosis, or edema. Pedal pulses appreciated NEUROLOGICAL: Awake and alert. Moves all extremity. Normal speech.no focal neurological deficit A/P Problem List: (1) Suicide attempt by drug ingestion ICD Code: T50.902A - Poisoning by unspecified drugs, medicaments and biological substances, intentional self-harm, initialencounter Status: Acute (2) Abnormal EKG ICD Code: R94.31 - Abnormal electrocardiogram [ECG] [EKG] (3) Dehydration ICD Code: E86.0 - Dehydration Assessment and Plan 21 yo male past medical history of ADD, depression with previous suicide attempt admitted after repeat suicide attempt via OD on antidepressants and Strattera. Depression Suicide attempt via intentional OD - under Christensen act - Psych consulted, appreciate assistance. Patient to be transferred to psychiatry once medically stable/appropriate for MedPsych unit. Patient started on the future and 75 mg twice a day for depression. - Continue sitter - UDS ordered Intentional OD antidepressants and Strattera - poison control contacted and recommended serial EKGs - last EKG with prolonged QTc and T wave inversions. Patient denies any cardiac complaints. Continue to monitor. Repeat EKG in 3 hours. - Consult cardiology to evaluate for conduction abnormality, appreciate assistance cleared cardiac clinton - continuous cardiac monitoring - obtain serial cardiac enzymes - seizure precautions Dehydration - GFR 86 - Receiving IV fluid hydration - repeat labs in am to monitor response DVT prophylaxis - Bilateral SCD/CARLA hose Medically cleared to go to [facility] Discharge Planning Discharge patient to home Condition on discharge: Improved Regular Diet as tolerated Ad Maryan activity Rx written: See med rec Follow-up with primary care physician Problem Qualifiers (1) Suicide attempt by drug ingestion: Qualified Codes: T50.902A - Poisoning by unspecified drugs, medicaments and biological substances, intentional self-harm, initial encounter Mildred Auguste MD Jul 21, 2017 14:28
--- NOTE | 2017-07-21 18:13 | EKG ---
Date Performed: 07/20/2017 Time Performed: 10:15:13 PTAGE: 21 years EKG: Normal Sinus rhythm Left atrial abnormality Incomplete left bundle branch block Slight ST elevation, probable normal chirag iant PREVIOUS TRACING : 07/20/2017 06.05 Compared to prior tracing no significant change DOCTOR: Kennedy Sheffield Interpretating Date/Time 07/21/2017 18:11:55
--- NOTE | 2017-07-21 18:15 | EKG ---
Date Performed: 07/20/2017 Time Performed: 18:04:14 PTAGE: 21 years EKG: Normal Sinus rhythm Left atrial abnormality Incomplete left bundle branch block Slight ST elevation, probable normal chirag iant PREVIOUS TRACING 07/20/17 Compared to prior tracing no significant change DOCTOR: Kennedy Sheffield Interpretating Date/Time 07/21/2017 18:14:25
--- NOTE | 2017-07-21 18:15 | EKG ---
Date Performed: 07/20/2017 Time Performed: 14:13:46 PTAGE: 21 years EKG: Normal Sinus rhythm Left atrial abnormality Incomplete left bundle branch block Slight ST elevation, probable normal chirag iant PREVIOUS TRACING : 07/20/2017 10.15 Compared to prior tracing no significant change DOCTOR: Kennedy Sheffield Interpretating Date/Time 07/21/2017 18:13:49
== END 2017-07-21 13:41 ==
LOC: NEPE 23:33 → NEDA 07-20 02:30 → NEPGCP 07-20 05:14
PROVIDERS: ADMIT Hospitalist; ATTEND Hospitalist
DX: T43.202A Poisoning by unspecified antidepressants, intentional self-harm, initial encounter (principal); R94.31 Abnormal electrocardiogram [ECG] [EKG]; I45.10 Unspecified right bundle-branch block; F32.9 Major depressive disorder, single episode, unspecified; E86.0 Dehydration; R05 Cough; F17.200 Nicotine dependence, unspecified, uncomplicated
CPT/HCPCS: 71010; 80053; 80307; 81001; 82550; 82552; 83930; 83935; 84443; 84484; 85025; 85610; 85730; 93005; 96360; 96361; 99285; G0378; J7030

== ENCOUNTER 2017-07-21 13:43 | Inpatient (IN) | payer SELFPAY ==
[~2017-07-21] VITALS: Ht 177.8 cm; Wt 89.4 kg
[2017-07-21 05:44] VITALS: BP 133/66; PULSE 51; RESP 18; TEMP 97.8; O2SAT 97
[2017-07-21 13:00] VITALS: BP_SYST 115; BP_DIAS 63; BP_DIAS 76; PULSE 59; PULSE 80; RESP 16; RESP 18; TEMP 97.9; TEMP 98; O2SAT 97; O2SAT 99
[~2017-07-21 13:43] MED LIST changes: +BUPR150CR PO
[2017-07-21] MEDS ORDERED: LORazepam 0.5 MG TAB PO PRN (14:15)
[2017-07-21] MEDS ORDERED: MAGNESIUM HYDROXIDE SUSP 30 ML CUP PO PRN (14:15)
[2017-07-21] MEDS ORDERED: ACETAMINOPHEN 325 MG TAB PO PRN (14:15)
[2017-07-21] MEDS ORDERED: LORazepam 1 MG TAB PO PRN (14:15)
[2017-07-21] MEDS: NICOTINE 21 MG/24 HR PATCH T-DERMAL SCH (14:15)
[2017-07-21] MEDS ORDERED: ALUMINUM/MAGNESIUM/SIMETH 30 ML CUP PO PRN (14:15)
[2017-07-21] MEDS ORDERED: LORazepam 2 MG/ML VIAL IM PRN ×2 (14:15)
[2017-07-21] MEDS: REMOVE OLD PATCH T-DERMAL SCH (14:16)
[2017-07-21] MEDS: buPROPion HCL 75 MG TAB PO SCH (16:11)
[2017-07-22 07:58] LABS: ANION GAP 7 MEQ/L (5-15); CHLORIDE 104 MEQ/L (98-107); GLOMERULAR FILTRATION RATE 88 ML/MIN (>89); SODIUM (NA) 141 MEQ/L (136-145)
[2017-07-22 08:04] LABS: BLOOD UREA NITROGEN 14 MG/DL (7-18); HDL CHOLESTEROL 50.5 MG/DL (40.0-60.0); LDL CHOLESTEROL 110 MG/DL (0-99)
[2017-07-22] MEDS: buPROPion HCL 75 MG TAB PO SCH ×2 (08:40→21:11)
[2017-07-22] MEDS: NICOTINE 21 MG/24 HR PATCH T-DERMAL SCH (08:41)
[2017-07-22] MEDS: REMOVE OLD PATCH T-DERMAL SCH (08:44)
[2017-07-22] MEDS ORDERED: diphenhydrAMINE HCL 50 MG CAP PO PRN (11:00)
[2017-07-22] MEDS ORDERED: hydrOXYzine HCL 50 MG TAB PO PRN (11:00)
[2017-07-22] MEDS ORDERED: ACETAMINOPHEN 325 MG TAB PO PRN (11:00)
[2017-07-22] MEDS ORDERED: PILL SPLITTER OTHER PRN (11:15)
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
[2017-07-22] MEDS: SERTRALINE HCL 50 MG TAB PO SCH (11:46)
[2017-07-22 13:38] LABS: HEMOGLOBIN A1a 1.4 %; HEMOGLOBIN A1b 0.8 %; HEMOGLOBIN Ao 85.9 %; HEMOGLOBIN LA1C 1.9 %; HEMOGLOBIN P3 3.5 %
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
[2017-07-22 18:13] VITALS: BP 122/56; PULSE 60; RESP 18; TEMP 98.6; O2SAT 94
[2017-07-22 18:23] VITALS: BP 122/56; PULSE 60; RESP 18; TEMP 98.6; O2SAT 94
[2017-07-23 05:35] VITALS: BP 122/61; PULSE 60; RESP 17; TEMP 98.6; O2SAT 100
[2017-07-23] MEDS: SERTRALINE HCL 50 MG TAB PO SCH (08:52)
[2017-07-23] MEDS: buPROPion HCL 75 MG TAB PO SCH ×2 (08:52→21:02)
[2017-07-23] MEDS: NICOTINE 21 MG/24 HR PATCH T-DERMAL SCH (08:53)
[2017-07-23] MEDS: REMOVE OLD PATCH T-DERMAL SCH (09:00)
--- NOTE | 2017-07-23 12:57 | HHI.PYPN ---
Subjective Chief Complaint: depression with suicide attempt Remarks Patient seen in room with nurse Faizan, patient calm cooperative appears his affect is somewhat improved. He has talked to his parents they're flying back from [place] will be in town tomorrow. She still is for little support in town at this time. While he states his mood is better for this is somewhat & environmental improvement. Is been compliant with his Zoloft and with his Wellbutrin. Perhaps they have a and additive effect with helping his mood. We' ll continue both medications at this time. Consider discharge tomorrow when his patients are available to help monitor him Review of Systems Except as stated in HPI: all other systems reviewed are Neg Mental Status Examination Appearance: Appropriate Consciousness: Alert Orientation: x4 Motor Activity: Normal gait Speech: Unremarkable Language: Adequate Fund of Knowledge: Adequate Attention and Concentration: Other (fair) Memory: Unremarkable Mood: Other (depressed and restricted) Affect: Other (decreased range and intensity) Thought Process & Associations: Intact Thought Content: Appropriate, Obsessions (male obsessive thoughts) Hallucination Type: None Delusion Type: None Suicidal Ideation: Yes Suicidal Plan: Yes (patient vague about taking the suicide pill) Suicidal Intention: Yes (vague) Homicidal Ideation: No Homicidal Plan: No Homicidal Intention: No Insight: Poor Judgment: Poor Results Vitals/IOs Vital Signs Date Time Temp Pulse Resp B/P (MAP) Pulse Ox O2 Delivery O2 Flow Rate FiO2 07/23/17 05:35 98.6 60 17 122/61 (81) 100 Assessment & Plan Problem List: (1) Major depressive disorder, recurrent severe without psychotic features ICD Codes: F33.2 - Major depressive disorder, recurrent severe without psychotic features Assessment & Plan Estimated LOS: days patient somewhat improved today he denies suicidality homicidality voices or visions. Patient's parents are do home tomorrow consider discharge tomorrow Justification for Cont. Inpt. At this time patient will decompensate if not place an appropriate level of care Discharge Planning Consider discharge tomorrow to family Request HC Surrog/Guard Advoc?: Demetrio Aquino MD Jul 23, 2017 12:57
[2017-07-23 16:44] VITALS: BP 124/66; PULSE 89; RESP 18; TEMP 97.6; O2SAT 98
[2017-07-24 05:40] VITALS: BP 116/63; PULSE 45; RESP 18; TEMP 98; O2SAT 97
[2017-07-24] MEDS: REMOVE OLD PATCH T-DERMAL SCH (09:00)
[2017-07-24] MEDS: buPROPion HCL 75 MG TAB PO SCH (09:00)
[2017-07-24] MEDS: NICOTINE 21 MG/24 HR PATCH T-DERMAL SCH (09:00)
[2017-07-24] MEDS: SERTRALINE HCL 50 MG TAB PO SCH (09:06)
[2017-07-24] MEDS ORDERED: BUPR75TA PO (11:51)
[2017-07-24] MEDS ORDERED: ZOLO25TA PO (11:51)
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
== END 2017-07-24 17:30 | disposition home or self-care (01) | DRG 885 ==
LOC: H260 13:43 → H250 07-22 11:11
PROVIDERS: ADMIT Psychiatry & Neurology Psychiatry; ATTEND Psychiatry & Neurology Psychiatry
DX: F33.2 Major depressive disorder, recurrent severe without psychotic features (principal); R45.851 Suicidal ideations; G47.00 Insomnia, unspecified; Z79.899 Other long term (current) drug therapy
CPT/HCPCS: 80048; 80061; 83036